=== PATIENT | female | born 1985 | race Caucasian/White ===

== ENCOUNTER 2024-02-07 13:36 | Inpatient (IN) | payer OTHER ==
[~2024-02-07] VITALS: Ht 162.6 cm; Wt 135.7 kg
[2024-02-07] MEDS ORDERED: MAGNESIUM/ALUMINUM HYDROXIDE/SIMETHICONE 30ML UDC PO STA (13:46)
[2024-02-07] MEDS ORDERED: FAMOTIDINE 20MG TABLET PO ONE (14:00)
[2024-02-07 14:55] LABS: BASOPHILS % 0.4 % (0.0-2.0); CHLORIDE 104 mEq/L (98-107); EOSINOPHILS % 3.9 % (0.0-5.0); HEMATOCRIT. 38.4 % (36.0-48.0); LYMPHOCYTES % 10.5 % (20.0-50.0); MEAN CORPUSCULAR HEMOGLOBIN 28.8 pg (28.0-32.0); MEAN CORPUSCULAR HGB CONC 33.9 g/dL (31.0-37.0); MEAN CORPUSCULAR VOLUME 85.1 fL (81.0-99.0); MEAN PLATELET VOLUME 8.2 fl (7.4-10.4); MONOCYTES % 5.5 % (2.0-8.0); NEUTROPHILS % 79.7 % (40.0-76.0); PLATELET 382 x1000/uL (130-400); RED BLOOD CELL COUNT 4.51 mill/uL (4.2-5.4); RED CELL DISTRIBUTION WIDTH 14.2 % (11.6-14.6); SODIUM 137 mEq/L (136-145); WHITE BLOOD COUNT 11.9 x1000/uL (4.5-11.0)
[2024-02-07 14:56] LABS: CARBON DIOXIDE 28 mEq/L (21-32)
[2024-02-07 14:57] LABS: CALCIUM 9.1 mg/dL (8.7-10.4)
[2024-02-07 15:01] LABS: CREATININE 0.6 mg/dL (0.6-1.0)
[2024-02-07 15:02] LABS: GLUCOSE 104 mg/dL (70-105); UREA NITROGEN BLOOD 13 mg/dL (9-23)
[2024-02-07 15:03] LABS: ALANINE AMINOTRANSFERASE 71 IU/L (10-49); ALBUMIN 4.3 g/dL (3.2-4.8); ASPARTATE AMINOTRANSFERASE 76 IU/L (<34)
[2024-02-07 15:04] LABS: BILIRUBIN DIRECT 0.2 mg/dL (<=3.0); BILIRUBIN TOTAL 0.6 mg/dL (0.1-1.0); PROTEIN TOTAL 7.4 g/dL (6.0-8.3)
[2024-02-07 15:10] LABS: D-DIMER 0.54 mg/L FEU (<0.50); INR 0.9; PARTIAL THROMBOPLASTIN TIME 27.9 sec (23.4-31.0); PROTHROMBIN TIME 10.6 sec (9.6-11.0)
[2024-02-07 15:31] LABS: HCG SCREEN NEGATIVE
[2024-02-07 15:52] LABS: TROPONIN I HIGH SENSITIVITY 36 ng/L (3.0-34)
[2024-02-07] MEDS ORDERED: ENOXAPARIN 150MG/ML SYR SUBCUT ONE (16:00)
[2024-02-07 18:46] LABS: TROPONIN I HIGH SENSITIVITY 36 ng/L (3.0-34)
[2024-02-07] MEDS: MAGNESIUM/ALUMINUM HYDROXIDE/SIMETHICONE 30ML UDC PO NR (18:47)
[2024-02-07] MEDS: ENOXAPARIN 150MG/ML SYR SUBCUT NR (18:47)
[2024-02-07] MEDS: FAMOTIDINE 20MG TABLET PO NR (18:48)
[2024-02-07] MEDS: IOHEXOL-350 100 ML BOTTLE ONE (20:29)
[2024-02-07 23:35] VITALS: BP 128/71; PULSE 70; RESP 18; TEMP 36.55848; O2SAT 100
[2024-02-08] MEDS ORDERED: DOCUSATE SODIUM 100MG CAPSULE PO PRN (00:30)
[2024-02-08] MEDS ORDERED: CLONIDINE 0.1MG TABLET PO PRN (00:30)
[2024-02-08] MEDS ORDERED: DEXTROSE 50% WATER 50ML SYRINGE IV PRN (00:30)
[2024-02-08] MEDS ORDERED: ONDANSETRON HCL 4MG/2ML INJ IV PRN (00:30)
[2024-02-08] MEDS ORDERED: IPRATROPIUM/ALBUTEROL 0.5-3(2.5)MG/3ML NEB HHN PRN (00:30)
[2024-02-08] MEDS ORDERED: GUAIFENESIN 200MG/10ML SUGAR FREE UDC PO PRN (00:30)
[2024-02-08] MEDS: SODIUM CHLORIDE 0.9% 1,000 ML IV SCH (00:56)
[2024-02-08 03:10] LABS: TRIGLYCERIDE 133 mg/dL (0-150)
[2024-02-08 03:11] LABS: ALBUMIN 4.1 g/dL (3.2-4.8); CHOLESTEROL 154 mg/dL (<200); LDL CHOLESTEROL 93 mg/dL (5-100)
[2024-02-08 03:12] LABS: HDL CHOLESTEROL 42 mg/dL (>65); PHOSPHORUS 3.6 mg/dL (2.5-4.9); PREALBUMIN 15.4 mg/dl (10.0-40.0); THYROID STIMULATING HORMONE 1.73 uIU/mL (0.55-4.78)
[2024-02-08 03:14] LABS: T4 FREE 1.36 ng/dL (0.89-1.76)
[2024-02-08 05:29] VITALS: BP 128/71; PULSE 70; RESP 18; TEMP 36.5848
[2024-02-08] MEDS: INSULIN LISPRO 100 UNITS/ML SUBCUT SCH (07:15)
[2024-02-08] MEDS: BLOOD SUGAR DIAGNOSTIC STRIP TEST SCH (07:42)
[2024-02-08 08:17] LABS: CARBON DIOXIDE 27 mEq/L (21-32); CHLORIDE 106 mEq/L (98-107); POTASSIUM 3.7 mEq/L (3.5-5.1); SODIUM 140 mEq/L (136-145)
[2024-02-08 08:20] LABS: CREATINE KINASE MB FRACTION 0.5 ng/mL (0.5-3.6)
[2024-02-08 08:23] LABS: CREATININE 0.5 mg/dL (0.6-1.0); GLUCOSE 74 mg/dL (70-105); UREA NITROGEN BLOOD 11 mg/dL (9-23)
[2024-02-08 08:46] LABS: HEMATOCRIT 34.6 % (36.0-48.0); HEMOGLOBIN 11.4 g/dL (12.0-16.0); MEAN CORPUSCULAR HEMOGLOBIN 28.7 pg (28.0-32.0); MEAN CORPUSCULAR HGB CONC 33.1 g/dL (31.0-37.0); MEAN CORPUSCULAR VOLUME 86.8 fL (81.0-99.0); PLATELET 350 x1000/uL (130-400); RED BLOOD CELL COUNT 3.99 mill/uL (4.2-5.4); RED CELL DISTRIBUTION WIDTH 14.2 % (11.6-14.6); WHITE BLOOD COUNT 8.3 x1000/uL (4.5-11.0)
[2024-02-08 09:00] VITALS: BP 129/78; PULSE 81; RESP 18; TEMP 36.22512; O2SAT 97
[2024-02-08] MEDS: ENOXAPARIN 30MG/0.3ML SYR SUBCUT SCH (09:24)
[2024-02-08] MEDS: ASPIRIN 81MG TABLET PO SCH (09:24)
[2024-02-08 10:41] VITALS: BP 129/78; PULSE 81; TEMP 97.2; O2SAT 97
[2024-02-08] MEDS ORDERED: FAMOTIDINE 20MG TABLET PO SCH (21:00)
== END 2024-02-08 12:41 | disposition home or self-care (01) | DRG 281 ==
LOC: ER 15:54 → EDBEDREQTM 21:01 → EDBEDREQ 21:01 → 5WST 23:42
PROVIDERS: ADMIT Hospitalist; ATTEND Hospitalist
DX: I21.4 Non-ST elevation (NSTEMI) myocardial infarction (principal); Z68.43 Body mass index [BMI] 50.0-59.9, adult; I25.10 Atherosclerotic heart disease of native coronary artery without angina pectoris; K75.81 Nonalcoholic steatohepatitis (NASH); D72.829 Elevated white blood cell count, unspecified; E66.01 Morbid (severe) obesity due to excess calories; K80.20 Calculus of gallbladder without cholecystitis without obstruction; Z79.82 Long term (current) use of aspirin; Z88.6 Allergy status to analgesic agent; Z98.84 Bariatric surgery status
CPT/HCPCS: 36415; 71045; 71275; 80048; 80061; 80076; 82040; 82553; 82962; 83036; 83605; 83735; 83880; 84100; 84134; 84145; 84439; 84443; 84484; 84703; 85025; 85027; 85379; 93005; J1650; J7030; Q9967